=== PATIENT | female | born 1955 | race Caucasian/White ===

== ENCOUNTER 2017-09-12 10:51 | Emergency (ER) | payer BC ==
[2017-09-12 11:03] VITALS: BP 159/77
--- NOTE | 2017-09-12 11:57 | UC ---
Palpitation/Dysrhythmia HP - HPI Summary HPI Summary: PATIENT PRESENTS WITH SUDDEN ONSET OF PALPITATIONS AND PERSISTENT RAPID HEART RATE THAT OCCURRED AFTER SHE GOT OUT OF THE SHOWER THIS MORNING AROUND 9 AM. PATIENT HAD GONE FOR A WALK THIS MORNING AND WAS FEELING WELL UNTIL THAT POINT. SHE DENIES ANY CHEST PAIN, SHORTNESS OF BREATH, NAUSEA, DIZZINESS, FEVER. REPORTS SHE HAS BEEN UNDER A LOT OF STRESS AT WORK AND SO IS FEELING SOMEWHAT ANXIOUS. SHE DENIES EXCESSIVE CAFFEINE INTAKE. SHE HAS HAD SIMILAR SYMPTOMS INTERMITTENTLY OVER THE PAST FEW WEEKS BUT HAS BEEN USING RELAXATION TECHNIQUES WITH GOOD EFFICACY. DENIES ANY NEW MEDICATIONS. SHE TAKES MIANI DAILY. IS UNSURE IF IT HAS A DECONGESTANT IN IT BUT STATES SHE HAS TAKEN THE SAME THING FOR YEARS. - History of Current Complaint Chief Complaint: UCCardiac Stated Complaint: RAPID PULSE Time Seen by Provider: 09/12/17 11:40 Hx Obtained From: Patient Onset/Duration: Sudden Onset, Lasting Hours, Still Present Timing: Constant Severity Initially: Moderate Severity Currently: Moderate Pain Intensity: 0 Pain Scale Used: 0-10 Numeric Character: Fast Aggravating Factor(s): Nothing Alleviating Factor(s): Nothing Associated Signs & Symptoms: Positive: Negative - Allergy/Home Medications Allergies/Adverse Reactions: Allergies Allergy/AdvReac Type Severity Reaction Status Date / Time aspirin Allergy Rash Verified 09/12/17 10:55 Penicillins Allergy Rash Verified 09/12/17 10:55 Home Medications: Home Medications Azelastine/Fluticasone JUAN(NF [Dymista(NF)] 1 spr NASAL DAILY 09/12/17 [History Confirmed 09/12/17] PMH/Surg Hx/FS Hx/Imm Hx - Additional Past Medical History Additional PMH: ALLERGIES - Surgical History Surgical History: None - Family History Known Family History: Positive: Hypertension - Social History Alcohol Use: Occasionally Substance Use Type: None Smoking Status (MU): Never Smoked Tobacco Review of Systems Constitutional: Negative Respiratory: Negative Cardiovascular: Palpitations, Other - TACHYCARDIA Gastrointestinal: Negative Genitourinary: Negative Psychological: Anxious All Other Systems Reviewed And Are Negative: Yes Physical Exam Triage Information Reviewed: Yes Appearance: Well-Appearing, No Pain Distress, Well-Nourished Vital Signs: Initial Vital Signs Temp 98.3 F 09/12/17 10:55 Pulse 110 09/12/17 10:55 Resp 14 09/12/17 10:55 BP 159/77 09/12/17 10:55 Pulse Ox 100 09/12/17 10:55 Vital Signs Reviewed: Yes Eyes: Positive: Conjunctiva Clear ENT: Positive: Hearing grossly normal, Pharynx normal, TMs normal Neck: Positive: Supple, Nontender, No Lymphadenopathy Respiratory Exam: Normal Cardiovascular: Positive: Tachycardia Abdomen Description: Positive: Soft Musculoskeletal: Positive: No Edema Neurological: Positive: Alert Psychological: Positive: Normal Response To Family, Age Appropriate Behavior Skin: Negative: rashes Diagnostics - EKG Cardiac Rate: Tachycardia - 110BPM Cardiac Rhythm: Sinus: Normal Ectopy: None ST Segment: Normal Palpitations Course/Dx - Differential Dx/Diagnosis Provider Diagnoses: TACHYCARDIA Discharge - Sign-Out/Discharge Documenting (check all that apply): Discharge/Admit/Transfer - Discharge Plan Condition: Stable Disposition: HOME Patient Education Materials: Tachycardia (ED) Referrals: Maren Anderson NP [Primary Care Provider] - If Needed Additional Instructions: UNCLEAR ETIOLOGY OF YOUR RAPID HEART RATE TODAY. RECOMMEND ED EVALUATION. YOU WOULD LIKELY BENEFIT FROM SOME LABS INCLUDING CBC, CMP AND TSH. - Billing Disposition and Condition Condition: STABLE Disposition: HOME
== END 2017-09-12 12:10 | disposition home or self-care (01) ==
LOC: UCEAST 10:51
DX: R00.0 Tachycardia, unspecified (principal); Z88.6 Allergy status to analgesic agent; Z88.0 Allergy status to penicillin; Z82.49 Family history of ischemic heart disease and other diseases of the circulatory system
CPT/HCPCS: 93005; 99212; G0463

== ENCOUNTER 2017-09-12 12:32 | Emergency (ER) | payer BC ==
--- NOTE | 2017-09-12 13:47 | RAD ---
Indication: Recent onset of heart palpitations. Similar episode 5 years ago. Comparison: December 10, 2010 CT abdomen. January 23, 2004 chest radiograph. Technique: Upright AP 1328 hours Report: Clear lungs and pleural spaces. Negative for pneumothorax. The heart, pulmonary vasculature, and mediastinal contours are unremarkable. Unremarkable osseous structures and soft tissue contours. IMPRESSION: No evidence for acute intrathoracic disease.
[2017-09-12 13:53] LABS: ABS Basophils 0 10^3/ul (0-0.2); ABS Eosinophils 0 10^3/ul (0-0.6); ABS Lymphocytes 0.9 10^3/ul (1.0-4.8); ABS Monocytes 0.2 10^3/ul (0-0.8); ABS Neutrophils 5.4 10^3/ul (1.5-7.7); ABS Nucleated RBC 0 10^3/ul; Eosinophil % 0.5 % (0-6); Hematocrit 42 % (35-47); Hemoglobin 14.1 g/dl (12.0-16.0); Lymphocyte % 13.4 % (25-47); Mean Corpuscular HGB Conc 34 g/dl (31-36); Mean Corpuscular Hemoglobin 29 pg (27-31); Mean Corpuscular Volume 85 fL (80-97); Mean Platelet Volume 7.3 um3 (7.4-10.4); Nucleated Red Blood Cells % 0; Platelet Count 237 10^3/ul (150-450); Red Blood Count 4.94 10^6/ul (4.0-5.4); Red Cell Distribution Width 14 % (10.5-15); White Blood Count 6.5 10^3/ul (3.5-10.8)
[2017-09-12 13:56] LABS: Urine Appearance Clear; Urine Blood 1+ (Negative); Urine Color Straw; Urine Ketones Negative (Negative); Urine Protein Negative (Negative); Urine Specific Gravity 1.002 (1.010-1.030); Urine Urobilinogen Negative (Negative)
[2017-09-12 14:23] LABS: EGFR Non-African American 71.9 (>60)
[2017-09-12 18:28] VITALS: BP 143/76
--- NOTE | 2017-09-16 07:47 | ED ---
Jesus Padilla Angela, scribed for Ez Quintana MD on 09/12/17 at 1336 . Palpitations / Dysrhythmia - HPI Summary HPI Summary: This pt is a 62 y/[facility] c/o palpitations characterized as rapid heart rate today. Pt reports she went on a walk this morning and was feeling well. She then went to take a shower at home getting ready for work when she suddenly felt palpitations. She describes palpitations as fast heart rate of 112 bpm. Denies any other symptoms, chest pain, SOB, nausea, vomiting, fever, dizziness. Pt tried to do some relaxation techniques but had no relief and she called her PCP (Maren Anderson NP). Her PCP scheduled her for an appointment today at 14:30 but her elevated heart rate persisted and she decided to go to Urgent Care. Pt reports she has had increased stress at work and is feeling anxious. She states having similar episodes of rapid heart rate a few times over the past several weeks. Pt notes she has done relaxation techniques with relief. She drinks only 1 cup of coffee per day. Pt notes she flew to [place] this past weekend (3 short flights). Denies blood clot history. She denies tobacco and drug use, but notes occasional alcohol use. Pt is only on Kelly on a daily basis. - History of Current Complaint Chief Complaint: EDDysrhythmPalp Hx Obtained From: Patient Onset/Duration: Sudden Onset, Still Present Timing: Constant Severity Currently: Moderate Character: Fast Aggravating: Nothing Alleviating: Nothing Associated Signs & Symptoms: Negative - Allergy/Home Medications Allergies/Adverse Reactions: Allergies Allergy/AdvReac Type Severity Reaction Status Date / Time aspirin Allergy Rash Verified 09/12/17 10:55 Penicillins Allergy Rash Verified 09/12/17 10:55 PMH/Surg Hx/FS Hx/Imm Hx Endocrine/Hematology History: Denies: Hx Diabetes, Hx Thyroid Disease Cardiovascular History: Denies: Hx Hypertension Respiratory History: Reports: Other Respiratory Problems/Disorders - PNA Denies: Hx Asthma, Hx Chronic Obstructive Pulmonary Disease (COPD) GI History: Denies: Hx Ulcer - Cancer History Hx Chemotherapy: No Hx Radiation Therapy: No Infectious Disease History: No Infectious Disease History: Denies: Hx Hepatitis, Hx Human Immunodeficiency Virus (HIV), Traveled Outside the [place] in Last 30 Days - Family History Known Family History: Positive: Hypertension Negative: Blood Disorder Family History: Sister: thyroid disease - Social History Occupation: Employed Full-time - mental health therapist Alcohol Use: Occasionally Hx Substance Use: No Substance Use Type: Reports: None Hx Tobacco Use: No Smoking Status (MU): Never Smoked Tobacco Review of Systems Negative: Fever, Chills Negative: Erythema Negative: Sore Throat Positive: Palpitations. Negative: Chest Pain Negative: Shortness Of Breath, Cough Negative: Abdominal Pain, Vomiting, Nausea Negative: dysuria, hematuria Negative: Myalgia, Edema Negative: Rash Neurological: Other - NEG: dizziness All Other Systems Reviewed And Are Negative: Yes Physical Exam - Summary Physical Exam Summary: Constitutional: Well-developed, Well-nourished, Alert. (-) Distressed Skin: Warm, Dry HENT: Normocephalic; Atraumatic Eyes: Conjunctiva normal Neck: Musculoskeletal ROM normal neck. (-) JVD, (-) Stridor, (-) Tracheal deviation Cardio: Rhythm regular, rate normal, Heart sounds normal; Intact distal pulses; The pedal pulses are 2+ and symmetric. Radial pulses are 2+ and symmetric. (-) Murmur Pulmonary/Chest wall: Effort normal. (-) Respiratory distress, (-) Wheezes, (-) Rales Abd: Soft, (-) Tenderness, (-) Distension, (-) Guarding, (-) Rebound Musculoskeletal: (-) Edema Lymph: (-) Cervical adenopathy Neuro: Alert, Oriented x3 Psych: Mood and affect Normal Triage Information Reviewed: Yes Vital Signs On Initial Exam: Initial Vitals Temp Pulse Resp BP Pulse Ox 98.2 F 102 20 156/80 99 09/12/17 12:33 09/12/17 12:33 09/12/17 12:33 09/12/17 12:33 09/12/17 12:33 Vital Signs Reviewed: Yes Diagnostics - Vital Signs Vital Signs Temp Pulse Resp BP Pulse Ox 09/12/17 12:33 98.2 F 102 20 156/80 99 - Laboratory Result Diagrams: 09/12/17 13:38 09/12/17 13:38 Lab Statement: Any lab studies that have been ordered have been reviewed, and results considered in the medical decision making process. - Radiology Chest XR Xray Interpretation: No Acute Changes - IMPRESSION: No evidence for acute intrathoracic disease. Dr. Quintana has reviewed this radiology report. Radiology Interpretation Completed By: Radiologist - EKG 13:19 Cardiac Rate: NL - at 89 bpm EKG Rhythm: Sinus Rhythm EKG Interpretation: No STEMI. Re-Evaluation - Re-Evaluation First Eval Re-Evaluation Time: 17:55 Comment: I discussed the results with the pt. She will be discharged home. Course/Dx - Course Assessment/Plan: Pt is a 62 y/o female who presents with palpitations and rapid heart rate today. Pt reports she went on a walk this morning and was feeling well. She then went to take a shower at home getting ready for work when she suddenly felt palpitations. She describes palpitations as fast heart rate of 112 bpm. Denies any other symptoms, chest pain, SOB, nausea, vomiting, fever, dizziness. Pt reports increased stress and anxiety at work recently. Similar episodes over the past several weeks with increased heart rate. Test results without any significant abnormalities except for lactic acid of 2.5. D-dimer is less than 200.Two troponins are 0.00. Chest XR is negative. Pt reports she has significant stress. Pt will be discharged home with follow up from PCP in 2-3 days. Pt understands and agrees. - Diagnoses Provider Diagnoses: Palpitations, Anxiety Discharge - Sign-Out/Discharge Documenting (check all that apply): Discharge/Admit/Transfer - Discharge - Discharge Plan Condition: Stable Disposition: HOME Patient Education Materials: Heart Palpitations (ED), Anxiety (ED) Referrals: Maren Anderson NP [Primary Care Provider] - 2 Days (in 2-3 days.) Additional Instructions: Follow up with your primary care provider in 2-3 days. RETURN TO THE EMERGENCY DEPARTMENT FOR CHANGING OR WORSENING SYMPTOMS. The documentation as recorded by the Jesus sahu Angela accurately reflects the service I personally performed and the decisions made by me, Ez Quintana MD.
== END 2017-09-12 18:30 | disposition home or self-care (01) ==
LOC: ED 12:32
DX: R00.2 Palpitations (principal); F41.9 Anxiety disorder, unspecified; Z88.0 Allergy status to penicillin; Z88.6 Allergy status to analgesic agent
CPT/HCPCS: 36415; 71045; 80053; 81003; 81015; 83605; 83735; 84443; 84484; 85025; 85379; 87086; 93005; 99284